=== PATIENT | male | born 2000 | race Two or more races ===

== ENCOUNTER 2024-08-05 01:26 | Emergency (ER) | payer BC ==
[~2024-08-05] VITALS: Ht 180.3 cm; Wt 104.3 kg
[2024-08-05] MEDS ORDERED: 0.9 % SODIUM CHLORIDE 1,000 ML IV STA (04:03)
[2024-08-05] MEDS ORDERED: PROMETHAZINE HCL 50 MG/ML AMPUL IM STA (04:03)
[2024-08-05] MEDS ORDERED: FAMOtidine 10 MG/ML (4ML VIAL) IV PUSH STA (04:04)
[2024-08-05] MEDS ORDERED: PROMETHAZINE HCL 50 MG/ML AMPUL IM ONE (04:07)
[2024-08-05] MEDS ORDERED: HYOSCYAMINE SULFATE 0.125 MG TAB.SUBL ONE (04:07)
[2024-08-05] MEDS ORDERED: FAMOTIDINE/PF 20 MG/2 ML VIAL ONE (04:08)
[2024-08-05] MEDS ORDERED: HYOSCYAMINE SULFATE 0.125 MG TAB.SUBL SL ONE (04:15)
[2024-08-05 04:33] LABS: HEMATOCRIT 45.1 % (39.0-48.0); HEMOGLOBIN 15.8 g/dL (13-16.00); MEAN CELL VOLUME 85.4 fL (80.0-100.00); MEAN CORPUSCULAR HEMOGLOBIN 29.9 pg (27.00-32.0); MEAN CORPUSCULAR HGB CONC 35.1 g/dl (32.0-36.0); PLATELET COUNT 246 K/uL (150-450); RED BLOOD COUNT 5.29 M/uL (4.00-6.00); RED CELL DISTRIBUTION WIDTH 13.6 % (11.5-14.5)
[2024-08-05 05:05] LABS: CALCIUM 9.9 mg/dL (8.5-10.1); CREATININE SERUM 1.02 mg/dL (0.70-1.30); GFR 90.51; POTASSIUM 4.24 mEq/L (3.5-5.1)
== END 2024-08-05 06:28 | disposition home or self-care (01) ==
LOC: ER 01:26
DX: K52.9 Noninfective gastroenteritis and colitis, unspecified (principal)